=== PATIENT | female | born 1995 ===

== ENCOUNTER 2018-07-12 12:17 | Emergency (ER) | payer OTHER ==
--- NOTE | 2018-07-12 13:41 | ED PDOC ---
HPI: Abdomen Time Seen by Provider: 07/12/18 12:58 Chief Complaint (Nursing): Abdominal Pain Chief Complaint (Provider): Right sided pelvic pain x 1 week History Per: Patient History/Exam Limitations: no limitations Onset/Duration Of Symptoms: Days Outside of [place] travel?: No Current Symptoms Are (Timing): Still Present Additional Complaint(s): 22 yo presents for evaluation of right sided pelvic pain. Pt states it has been on.off for 1 week but today more painful. Pt states her last menses was 06/24/18 and was 2 days shorter than normal and slightly yield engineer bleeding. Pt denies N/V/D. Pt states she has been eating and drinking normally/ Pt has 5 months old child at home, is not breast feeding or taking contraceptive pills. Past Medical History Reviewed: Historical Data, Nursing Documentation, Vital Signs Vital Signs: Last Vital Signs Temp 97 F L 07/12/18 12:30 Pulse 108 H 07/12/18 12:30 Resp 16 07/12/18 12:30 BP 116/71 07/12/18 12:30 Pulse Ox 97 07/12/18 12:30 - Medical History PMH: No Chronic Diseases - Surgical History Surgical History: No Surg Hx - Family History Family History: States: No Known Family Hx - Living Arrangements Living Arrangements: With Family - Allergies Allergies/Adverse Reactions: Allergies Allergy/AdvReac Type Severity Reaction Status Date / Time No Known Allergies Allergy Verified 07/12/18 12:30 Review of Systems ROS Statement: Except As Marked, All Systems Reviewed And Found Negative Constitutional: Negative for: Fever, Chills Gastrointestinal: Positive for: Abdominal Pain. Negative for: Nausea, Vomiting, Diarrhea Genitourinary Female: Negative for: Dysuria, Frequency, Vaginal Discharge Skin: Negative for: Rash Neurological: Negative for: Weakness, Numbness Physical Exam - Reviewed Nursing Documentation Reviewed: Yes Vital Signs Reviewed: Yes - Physical Exam Appears: Positive for: Well, Non-toxic, No Acute Distress Head Exam: Positive for: ATRAUMATIC, NORMAL INSPECTION, NORMOCEPHALIC Skin: Positive for: Normal Color, Warm, DRY Eye Exam: Positive for: Normal appearance ENT: Positive for: Normal ENT Inspection Neck: Positive for: Normal, Painless ROM Cardiovascular/Chest: Positive for: Regular Rate, Rhythm Respiratory: Positive for: Normal Breath Sounds. Negative for: Accessory Muscle Use, Respiratory Distress Gastrointestinal/Abdominal: Positive for: Normal Exam, Soft. Negative for: Tenderness Back: Positive for: Normal Inspection Extremity: Positive for: Normal ROM Neurologic/Psych: Positive for: Alert, Oriented - Laboratory Results Result Diagrams: 07/12/18 14:09 07/12/18 14:09 - ECG O2 Sat by Pulse Oximetry: 97 Pulse Ox Interpretation: Normal Medical Decision Making Medical Decision Making: US - 19 weeks with FHT Labs normal. Disposition - Clinical Impression Clinical Impression: Abdominal pain during - Patient ED Disposition Is Patient to be Admitted: No Counseled Patient/Family Regarding: Diagnosis, Need For Followup - Disposition Disposition: Routine/Home Disposition Time: 16:21 Condition: GOOD Additional Instructions: Please take vitamins. Instructions: Screenings Forms: [employer] (Russian)
[2018-07-12] MEDS ORDERED: Lactated Ringer's 1,000 ML IV SCH (13:45)
[2018-07-12 14:18] LABS: BASO % 0.5 % (0.0-2.0); EOS % 0.4 % (0.0-4.0); HEMOGLOBIN 10.8 g/dL (12.0-16.0); LYMPH # 1.3 K/uL (1.0-4.3); MEAN CELL VOLUME 91.6 fl (81.0-99.0); MEAN CORPUSCULAR HEMOGLOBIN 29.6 pg (27.0-31.0); MEAN CORPUSCULAR HGB CONC 32.3 g/dL (33.0-37.0); MEAN PLATELET VOLUME 9.1 fl (7.2-11.7); MONO # 0.5 K/uL (0.0-0.8); MONO % 5.6 % (0.0-10.0); NEUT # 7.1 K/uL (1.8-7.0); NEUT % 79.5 % (50.0-75.0); RBC 3.65 Mil/uL (3.80-5.20); RED CELL DISTRIBUTION WIDTH 13.7 % (11.5-14.5)
[2018-07-12 14:24] LABS: ALB/GLOB RATIO 1.1 (1.0-2.1); ALBUMIN 3.7 g/dL (3.5-5.0); ALT/SGPT 19 U/L (9-52); AST/SGOT 23 U/L (14-36); BLOOD UREA NITROGEN 13 mg/dl (7-17); CALCIUM 8.8 mg/dL (8.4-10.2); GFR NON-AFRICAN AMERICAN > 60
--- NOTE | 2018-07-12 16:05 | US ---
Date of service: 07/12/2018 PROCEDURE: OB Pelvic Ultrasound HISTORY: right sided pelvic pain, ; 5 months . LMP: 06/24/2018 suggesting gestation of less than 3 weeks. COMPARISON: None available. FINDINGS: UTERUS: Gestational sac: A single intrauterine gestation is identified in breech lie with developing anterior placenta and no placental abruption or previa grossly appreciable. Heart rate: 139 bpm. age (Ultrasound estimated): Average ultrasonic age 19 weeks 0 days. Roz[place]-gestational hemorrhage: None apparent. Date of delivery (Ultrasound estimated) : 12/06/2018. The following mean parameters were obtained: Biparietal diameter 4.3 cm corresponds to 19 weeks 1 day. Head circumference 16.4 cm corresponds to 19 weeks 1 day. Abdominal circumference 13.3 cm corresponds to 18 weeks 5 days. Femur length 2.8 cm corresponds to 18 weeks 5 days. HC/AC ratio 1.24 which is upper limits of normal range. Uterus is nonfocal as imaged in terms of myometrial echotexture. No anatomical survey. CERVIX: Measures 4.3 cm. Long and closed. No cervical abnormality seen. RIGHT OVARY: Not identified. LEFT OVARY: Not identified. FREE FLUID: None. OTHER FINDINGS: None. IMPRESSION: A single viable intrauterine gestation is identified in breech lie with an average ultrasonic age of 19 weeks 0 days. No placental abruption or previa. Limited anatomical survey obtained. Proper survey can be obtained on elective basis by repeat ultrasonography.
[2018-07-13 00:10] VITALS: BP 112/54; PULSE 78; RESP 18; TEMP 97; O2SAT 98
== END 2018-07-12 17:00 | disposition home or self-care (01) ==
LOC: H.ER 12:17
DX: O26.892 Other specified pregnancy related conditions, second trimester (principal); Z3A.19 19 weeks gestation of pregnancy
CPT/HCPCS: 76815; 80053; 81025; 84702; 85025; 86850; 86900; 99283; J7120